=== PATIENT | female | born 1960 | race Caucasian/White ===

== ENCOUNTER 2021-06-28 12:22 | Emergency (ER) | payer OTHER ==
--- OUTSIDE RECORDS SUMMARY | 2021-06-28 12:25 | XMS REPORT | Continuity of Care Document ---
:1960 Author Organization [facility] t Address [address] [place] [address] Care Team Providers Name Role Phone Unknown Primary Care Physician Unavailable Peyton Skaggs Attending Clinician Unavailable Ame Attending Clinician Unavailable BRYNN Attending Clinician Unavailable Payers Payer Name Policy Type Policy Number Effective Date Expiration Date S parul MEDICARE PART A [id number] 2006 AND B 00:00:00 Problems Condition Condition Condition Status Onset Resolution Last Treating Co mments Source Name Details Category Date Date Treatment Clinician Date Dental Dental Disease Active [place] caries caries 07-30 Health 00:00: 00 Allergies, Adverse Reactions, Alerts Allergy Allergy Status Severity Reaction(s) Onset Inactive Treating Comm ents Source Name Type Date Date Clinician Penicill Allergy Active [place] ins to 07-30 Health substanc 00:00: e 00 Sulfamet Allergy Active Unknown 2020-0 [facility] hoxazole to 09-10 Health -Trimeth substanc 00:00: oprim e 00 Tramadol Allergy Active Unknown 2020-0 [place] to 09-10 Health substanc 00:00: e 00 Zolpidem Allergy Active Unknown 2020-0 [facility] to 09-10 Health substanc 00:00: e 00 PCN Adverse Active rash [facility] Stadol Adverse Active tachycardia [facility] Ambien Adverse Active hallucinatio [facility] Amitiza Adverse Active vomiting [facility] Lunesta Adverse Active hallucinatio [facility] Bactrim Adverse Active vomiting [facility] Reaction [facility] ent [facility] Levaquin Adverse Active Tendon [facility] Reaction snapped at [facility] - right knee [facility] ent Clinics Tramadol Adverse Active Info Not [facility] Reaction Available [facility] ent [facility] Social History Social Habit Start Date Stop Date Quantity Comments Source Exposure to Not sure [facility] SARS-CoV-2 (event) Alcohol intake 2020-07-08 2020-07-08 Ex-drinker [facility] 00:00:00 00:00:00 (finding) Tobacco Comment 2020-07-08 2020-07-08 Denies [facility] 00:00:00 00:00:00 Sex Ass[birth year] [facility] 00:00:00 00:00:00 Smoking Status Start Date Stop Date Source Tobacco smoking consumption unknown [facility] Medications Ordered Filled Start Stop Current Ordering Indication Dosage Frequency Signature Comments Components Source Medication Medication Date Date Medication? Clinician (SIG) Name Name No known No No known [place] medications 07-30 medication He alth 14:56: s 48 No known No No known [place] medications 07-30 medication He alth 14:56: s 48 chlorhexidi 2020- No [id number] 15mL Use 15 mL [place] ne 07-30 in the [facility] (Peridex) 00:00: 04:59 mouth or 0.12 % 00 :00 throat if solution needed for wound care for up to 14 days. clindamycin 2020- No [id number] 300mg Q.25D Take 1 [facility] (Cleocin) 07-30 capsule Health 300 MG 00:00: 04:59 (300 mg capsule 00 :00 total) by mouth 4 (four) times a day for 10 days. ibuprofen 2020- No [id number] 600mg Q6H Take 1 [place] 600 MG 07-30 tablet Health tablet 00:00: 04:59 (600 mg 00 :00 total) by mouth every 6 (six) hours if needed for mild pain for up to 4 days. Gabapentin Gabapentin Yes Kin Saleh [address] [facility] 7[facility]14 Li for pain [facility] Aciphex Aciphex 2018- Yes Kin Saleh [address] [facility]14 Li [facility] Crutch-Mate Crutch-Mate 2018-0 Yes Pete Saleh as [facility] Adult Adult 4-13 Li directed [facility] Fore[facility] Forearm [facility]: [facility] Protonix Protonix Yes Kin Saleh [address] [facility] Meloxicam Meloxicam Yes Kin Saleh [address] [facility] Seroquel Seroquel Yes Kin Saleh [address] [facility] Lasix Lasix Yes Kin Saleh 1-[address] [facility] [address] Li tablets as [facility] - needed for [facility] leg l swelling Outpati ent Clinics Simvastatin Simvastatin Yes Kin Saleh [address] [facility] Li in the [facility] evening [facility] Ropinirole Ropinirole Yes Kin Saleh [address] [facility] HCl HCl Li (take with [facility] - ropinirole [facility] 5 mg) l [facility]pat[facility] ent Clinics Amitriptyli Amitriptyli Yes Kin Saleh [address] [facility] Cyclobenzap Cyclobenzap Yes Kin Saleh [address] [facility] [address] rine HCl rine HCl Li as needed Yashira kes - for muscle [facility] cramps/henri l n Outpati ent Clinics Flovent Flovent Yes Kin Saleh 1 puff [facility] Diskus Diskus Li [facility] Ropinirole Ropinirole Yes Kin Saleh [address] [facility] [address] HCl HCl Li (take with [facility] - ropinirole [facility] 3 mg) l Outpati ent Clinics Fish Oil Fish Oil Yes Kin Saleh [address] [facility] [facility] Dulera Dulera Yes Kin Saleh [address] [facility] Incruse Incruse Yes Kin Saleh [facility] puff [facility] Ellipta Ellipta [facility] Metoprolol Metoprolol Yes Kin Saleh [address] [facility] [address] Tartrate Tartrate Li with food Yashira kes - [facility] Colace Colace Yes Kin Saleh not [facility] Adult Li defined [facility] Cymbalta Cymbalta Yes Kin Saleh [address] Valtrex Valtrex Yes Kin Saleh [address] [facility] Li orally 2x [facility] - daily x3 [facility] days l [facility]pat[facility] ent [facility]ics Aspirin Aspirin Yes Kin Saleh [address] [facility] MiraLax MiraLax Yes Kin Saleh [address] [facility] Li mixed with [facility] - 8 ounces [facility] of fluid l Outpati ent Clinics Furosemide Furosemide Yes Kin Saleh [address] [facility] Li as needed [facility] - for leg [facility] swelling l [facility] ent [facility]ics Mobic Mobic Yes Kin Saleh 1/[address] [facility] Li tablet as [facility] - needed for [facility] pain l [facility]pat[facility] ent Clinics Astepro Astepro Yes Kin Saleh 1 spray [address] [facility] each [facility] nostril [facility] Pantoprazol Pantoprazol Yes Kin Saleh [address] [facility] e Sodium e Sodium Li [facility] Clindamycin Clindamycin Yes Kin Saleh [address] [facility] HCl HCl Li [facility] Ciclopirox Ciclopirox Yes Kin Saleh [address] [facility] applicatio [facility] n to [facility] affected l area Outpati ent Clinics Vitamin D Vitamin D Yes Kin Saleh [address] [facility] Zomig Zomig Yes Kin Saleh [address] [facility] Li as needed [facility] - one time [facility] BusPIRone BusPIRone Yes Kin Saleh [address] [facility] HCl HCl Li [facility] Zetia Zetia Yes Kin Saleh [address] [facility] Zofran ODT Zofran ODT Yes Kin Saleh not C [facility] Li defined [facility] Bimatoprost Bimatoprost Yes Kin Saleh [address] [facility] Li into [facility] - affected [facility] eye in the l evening Outpati ent Clinics Oxybutynin Oxybutynin Yes Kin Saleh [address] [facility] [facility] Chloride ER Chloride ER Li [facility] Potassium Potassium Yes Kin Saleh [address] Chloride ER Chloride ER Li with food [facility] Immunizations Ordered Filled Immunization Date Status Comments Sourc e Immunization Name Name Flucelvax - single Flucelvax - single 2018-11-[address] [facility] dose syringe dose syringe 00:00:00 [facility] Vital Signs Vital Name Observation Time Observation Value Comments Source Systolic blood pressure 2020-07-29 20:00:00 139 mm[Hg] [facility] Diastolic blood pressure 2020-07-29 20:00:00 80 mm[Hg] [facility] Heart rate 2020-07-29 20:00:00 68 [facility]min [facility] height 2020-07-29 20:00:00 157.5 cm [facility] weight 2020-07-29 20:00:00 84.369 [facility] BMI 2020-07-29 20:00:00 34.02 kg/m2 [facility] Systolic blood pressure 2020-07-08 20:00:00 141 mm[Hg] [facility] Diastolic blood pressure 2020-07-08 20:00:00 84 mm[Hg] [facility] Heart rate 2020-07-08 20:00:00 71 /min [facility] height 2020-07-08 20:00:00 137.2 cm [facility] weight 2020-07-08 20:00:00 84.369 [facility] BMI 2020-07-08 20:00:00 44.85 kg/m2 [facility] Procedures This patient has no known procedures. Encounters Start End Encounter Admission Attending Care Care Encounter Source Date/Time Date/Time Type Type Clinicians Facility Department ID 2021-06-26 Outpatient Skaggs, Na [facility] [id number] [facility] 2021[facility]04-06 Outpatient Giles, Na [facility] [id number] [facility] 14[facility]47[facility]01 [facility] 2021-04-03 Outpatient Skaggs, Na [facility] [id number] [facility] 11:05[facility]00 [facility] 2021-03-25 Outpatient Giles, Na [facility] [id number] [facility] [address] 14[facility]22:27 [id number] [facility] 2021-03-25 Outpatient Skaggs, Na [facility] [id number] [facility] [address] 14:10:01 [id number] [facility] 2021-03-25 Outpatient Skaggs, Na [facility] [id number] [facility] [address] 14:09:35 [id number] [facility] 2021-03-25 Outpatient Skaggs, Na [facility] [id number] 13:35:37 [id number] [facility] 2021-03-25 Outpatient Skaggs, Na [facility] [id number] [facility] 12:28:09 [id number] [facility] 2021-03-25 Outpatient Skaggs, Na [facility]C [facility] [id number] [facility] 12:03:15 [id number] [facility] 2021-03-25 Outpatient Skaggs, Na [facility] ST[facility] [id number] [facility] [address] 12:02:58 [id number] [facility] 2021-03-25 Outpatient Skaggs, Na [facility] [id number] [facility] 12:02:27 [id number] [facility] 2021-03-25 Outpatient Skaggs, Na [facility] [id number] [facility] 12:00:37 [id number] [facility] 2021-03-25 Outpatient Ame, STLMLC [facility] [id number] 11:31:23 Vicky [id number] [facility] 2021-03-25 Outpatient Ame, [facility]LMLC [facility] [id number] [facility] 11:17:31 Vicky [id number] [facility] 2021-03-25 Outpatient Sidender, STLMLC STL[facility] [id number] 11:17:10 Vicky [id number] [facility] 2021-03-25 Outpatient Ame, STLMLC [facility] [id number] 11:00:33 Vicky [id number] [facility] 2021-03-25 Outpatient Ame, [facility] [id number] [facility] 10:57:38 Vicky [id number] [facility] 2020-07-16 Outpatient BRYNN [facility] [id number] [place] 15:23:18 TAIWO [facility] 2021-06-26 2021-06-26 ambulatory [facility] [id number] [facility] 2021-04-07 2021-04-07 ambulatory [facility] [id number] [facility] 2021-02-04 2021-02-04 ambulatory [facility] [id number] [facility] 2021-01-06 2021-01-06 ambulatory [facility] [id number] [facility] 2020-11-26 2020-11-26 Outpatient [facility] [id number] [facility] 2020-10-17 2020-10-17 Outpatient [facility] [id number] [facility] 2020-10-17 2020-10-17 Outpatient [facility] [id number] [facility] 2020-10-03 2020-10-03 Outpatient [facility] [id number] [facility] 2020-07-29 2020-07-29 Procedure LISA Zuniga [id number] [place] 13:48:52 15:59:26 Visit Taiwo RUIZ [id number] [facility] [id number] 2020-07-08 2020-07-08 Office LISA Zuniga [id number] [place] 15:45:58 17:48:57 Visit Taiwo RUIZ [id number] [facility] [id number] 2020-07-03 2020-07-03 Outpatient [facility] [id number] [facility] 2020-05-26 2020-05-26 Outpatient [facility] [id number] [facility] 2020-04-23 2020-04-23 Outpatient [facility] [id number] [facility] 2020-04-23 2020-04-23 Outpatient [facility] [id number] [facility] 2020-04-22 2020-04-22 Outpatient [facility] [id number] [facility] 2020-04-04 2020-04-04 Outpatient [facility] [id number] [facility] 2020-04-04 2020-04-04 Outpatient [facility] [id number] [facility] 2020-02-27 2020-02-27 Outpatient [facility] [id number] [facility] 2020-01-04 2020-01-04 Outpatient [facility] [id number] [facility] 2019-12-31 2019-12-31 Outpatient [facility] [id number] [facility] 2019-12-12 2019-12-12 Outpatient [facility] [id number] [facility] 2019-10-31 2019-10-31 [facility] [id number] [facility] 14[facility]00:00 14:00:00 [facility] Medicine Outpati ent Clinics 2019-09-24 2019-09-24 [facility] [id number] [address] 11:54:00 11:54:00 [facility] Medicine Outpati ent Clinics 2019-09-17 2019-09-17 [facility] [id number] 09:23:00 09:23:00 [facility] Medicine Outpati ent Clinics 2019-09-11 2019-09-11 [facility] [id number] [facility] 14[facility]40:00 14:40:00 [facility] Medicine Outpat[facility] Clinics 2019-08-20 2019-08-20 [facility] [id number] [facility] 09:46:00 09:46:00 [facility] Outpat[facility] Clinics 2019-08-07 2019-08-07 [facility] [id number] 13:47:00 13:47:00 [facility] Medicine Outpati ent Clinics 2019-07-31 2019-07-31 [facility] [id number] 16:44:00 16:44:00 [facility] Medicine Outpati ent Clinics 2019-06-11 2019-06-11 [facility] [id number] 14:54:00 14:54:00 [facility] Medicine Outpati ent Clinics 2019-06-11 2019-06-11 [facility] [id number] 10:15:00 10:15:00 t [facility] Medicine Medicine Outpati ent Clinics 2019-06-04 2019-06-04 [facility] [id number] [facility] 11:15:00 11:15:00 [facility] Medicine Outpati [facility] Clinics 2019-05-15 2019-05-15 [facility] [id number] [address] 11:47:00 11:47:00 t [facility] Medicine l Medicine Outpati ent Clinics 2019-05-14 2019-05-14 [facility] [id number] [facility] 15[facility]31:00 15:31:00 [facility] Medicine Outpati ent Clinics 2019-03-13 2019-03-13 [facility] [id number] [facility] 13:15:00 13:15:00 [facility] Medicine Outpati ent Clinics 2019-01-15 2019-01-15 [facility] [id number] 14[facility]59:00 14:59:00 [facility] Medicine Outpati [facility] Clinics 2019-01-11 2019-01-11 [facility] [id number] [facility] 16:20:00 16:20:00 [facility] Medicine Outpati ent Clinics 2018-12-13 2018-12-13 [facility] [id number] [facility] 12:03:00 12:03:00 t [facility] Medicine Medicine Outpati ent Clinics 2018-12-07 2018-12-07 [facility] [id number] [facility] 14:31:00 14:31:00 [facility] Medicine Outpati ent Clinics 2018-11-30 2018-11-30 [facility] [id number] [facility] 14:00:00 14:00:00 [facility] Medicine Outpati ent Clinics 2018-11-13 2018-11-13 [facility] [id number] [facility] 17:24:00 17:24:00 [facility] Outpat[facility] Clinics 2018-11-13 2018-11-13 [facility] [id number] [facility] 14:41:00 14:41:00 [facility] Outpati [facility] Clinics 2018-10-20 2018-10-20 [facility] [id number] [facility] 16:00:00 16:00:00 t [facility] Medicine Medicine Outpati ent Clinics 2018-09-12 2018-09-12 [facility] [id number] [address] 15:15:00 15[facility]15:00 [facility] Medicine Outpati ent Clinics 2018-08-29 2018-08-29 [facility] [id number] 10:40:00 10:40:00 t [facility] Medicine Medicine Outpati ent Clinics 2018-08-09 2018-08-09 [facility] [id number] [facility] 16:05:00 16:05:00 t [facility] Medicine Medicine Outpati ent Clinics 2018-04-22 2018-04-22 [facility] [id number] [facility] 13:25:00 13:25:00 t [facility] Medicine Medicine Outpati ent Clinics 2018-04-20 2018-04-20 [facility] [id number] [facility] 14:30:00 14:30:00 t [facility] Medicine Medicine Outpati ent Clinics 2018-04-13 2018-04-13 [facility] [id number] 11:01:00 11:01:00 [facility] Medicine Outpati ent Clinics 2018-03-26 2018-03-26 [facility] [id number] 19:36:00 19:36:00 t [facility] Medicine Medicine Outpati ent Clinics 2018-03-22 2018-03-22 [facility] [id number] [facility] 15:30:00 15:30:[address] [facility] [address] [facility] Medicine l Medicine Outpati ent Clinics 2018-03-20 2018-03-20 [facility] [id number] [facility] 14:03:00 14:03:[address] [facility] Medicine l Medicine Outpati ent Clinics 2018-03-17 2018-03-17 [facility] [id number] [facility] 16:56:00 16:56:[address] [facility] Medicine l Medicine Outpati ent Clinics 2017-11-18 2017-11-18 [facility] [id number] [facility] 14:00:00 14:00:00 t [facility] Medicine l Medicine Outpati ent Clinics 2017-08-19 2017-08-19 [facility] [id number] [facility] 11:30:00 11:30:[address] [facility] Medicine Medicine Outpati ent Clinics 2017-08-16 2017-08-16 [facility] [id number] [facility] 15:59:00 15:59:00 t [facility] Medicine Medicine Outpati ent Clinics 2017-07-26 2017-07-26 [facility] [id number] [facility] 14:34:00 14:34:[address] [facility] [address] [facility] Medicine l Medicine Outpati ent Clinics 2017-07-22 2017-07-22 [facility] [id number] [facility] 14:20:00 14:20:[address] [facility] [address] [facility] Medicine Medicine Outpati ent Clinics 2017-07-18 2017-07-18 [facility] [id number] [facility] 15:17:00 15:17:00 t [facility] Medicine l Medicine Outpati ent Clinics 2017-07-18 2017-07-18 [facility] [id number] [facility] 14:49:00 14:49:00 [facility] Medicine Outpati ent Clinics 2017-07-18 2017-07-18 [facility] [id number] [address] 14:34:00 14:34:[address] [facility] l Medicine Outpati ent Clinics 2017-07-15 2017-07-15 [facility] [id number] [facility] [address] 11:51:00 11:51:00 [facility] Medicine Outpati ent Clinics 2017-07-15 2017-07-15 [facility] [id number] 10:56:00 10:56:[address] [facility] l Medicine Outpati ent Clinics 2017-06-28 2017-06-28 [facility] [id number] [facility] 11:46:00 11:46:00 [facility] Medicine Outpati ent Clinics 2017-06-21 2017-06-21 [facility] [id number] [facility] 15:30:00 15:30:[address] [facility] l Medicine Outpati ent Clinics 2017-06-20 2017-06-20 [facility] [id number] [facility] 14:00:00 14:00:00 [facility] Medicine Outpati ent Clinics 2017-06-10 2017-06-10 [facility] [id number] [address] 13:37:00 13:37:00 [facility] Medicine Outpati ent Clinics 2017-06-02 2017-06-02 [facility] [id number] 15:00:00 15:00:00 [facility] Medicine Outpati ent Clinics 2017-06-01 2017-06-01 [facility] [id number] [facility] 11:30:00 11:30:00 [facility] Medicine Outpati ent Clinics Results This patient has no known results.
--- NOTE | 2021-06-28 14:41 | RAD REPORT ---
EXAM DESCRIPTION: RAD - Abdomen 1 View (KUB) - 06/28/2021 2:33 pm CLINICAL HISTORY: CONSTIPATION Pain COMPARISON: No comparisons FINDINGS: The bowel gas pattern is non-obstructive. No evidence of free air or pneumatosis. No suspi cious calcifications. No significant bony findings. Cholecystectomy clips. Significant fecal retention throughout the colon. IMPRESSION: Significant constipation.
[2021-06-28] MEDS ORDERED: MAGNESIUM CITRATE 300 ML BOT ONE (14:54)
[2021-06-28] MEDS ORDERED: FLEET ENEMA ADULT PR ONE (16:42)
--- NOTE | 2021-06-28 17:57 | EDPHYS ---
Physician Documentation [facility] Name: Genesis Duenas Age: 61 yrs Sex: Female : 1960 Arrival Date: 06/28/2021 Time: 12:23 Bed 26 Private MD: Alice Skaggs ED Physician Lior Huff HPI: 06/28 12:40 This 61 yrs old Female presents to ER via Wheelchair with complaints of Constipation. jmm 12:40 Onset: The symptoms/episode began/occurred 1 day(s) ago. Modifying factors: The jmm symptoms are alleviated by nothing. This is a 61 year old female with a history of htn, hlp, cp, that presents to the ED with complaints constipation beginning approx 2 weeks ago. Patient has only had a few small hard bowel movements since. Mother administered miralax with no relief. . Historical: - Allergies: 12:40 PENICILLINS (Rash); aa5 12:40 ambien (hallucinations); aa5 12:40 Lunesta (hallucinations); aa5 12:40 Stadol (fast heart rate); aa5 12:40 Levaquin ("snapped tendons"); aa5 12:40 Bactrim (Upset stomach); aa5 12:40 tramadol; aa5 12:40 Amitiza (severe diarrhea ); aa5 - PMHx: 12:40 Hypertensive disorder; Hypercholesterolemia; RLS; Sleep apnea; Anxiety; Depressive aa5 disorder; 12:46 Cerebral palsy; aa5 - PSHx: 12:40 Tonsillectomy; Adenoid excision; Tendons released behind knees; tendons released at aa5 groin; hip bone cut in half and turned outward; Cholecystectomy; section; hysterectomy; hernias; Appendectomy; - Immunization history:: Flu vaccine is up to date. - Social history:: Smoking status: Patient denies any tobacco usage or history of. ROS: 12:40 Constitutional: Negative for fever, chills, and weight loss, Cardiovascular: Negative jmm for chest pain, palpitations, and edema, Respiratory: Negative for shortness of breath, cough, wheezing, and pleuritic chest pain. 12:40 Abdomen/GI: Positive for abdominal pain, constipation. 12:40 All other systems are negative. Exam: 12:40 Constitutional: This is a well developed, well nourished patient who is awake, alert, jmm and in no acute distress. Head/Face: atraumatic. Eyes: EOMI, no conjunctival erythema appreciated ENT: Moist Mucus Membranes Neck: Trachea midline, Supple Chest/axilla: Normal chest wall appearance and motion. Cardiovascular: Regular rate and rhythm. No edema appreciated Respiratory: Normal respirations, no respiratory distress appreciated Abdomen/GI: Non distended, soft Back: Normal ROM Skin: General appearance color normal MS/ Extremity: Moves all extremities, no obvious deformities appreciated, no edema noted to the lower extremities Neuro: Awake and alert Psych: Behavior is normal, Mood is normal, Patient is cooperative and pleasant Vital Signs: 12:36 BP 132 / 80; Pulse 63; Resp 16 S; Temp 98.1(O); Pulse Ox 98% on R/A; Weight 84.82 kg aa5 (R); Height 4 ft. 6 in. (137.16 cm) (R); 12:36 Body Mass Index 45.09 (84.82 kg, 137.16 cm) aa5 MDM: 12:40 Patient medically screened. [facility] 17:54 Data reviewed: vital signs, nurses notes. Counseling: I had a detailed discussion with [facility] the patient and/or guardian regarding: the historical points, exam findings, and any diagnostic results supporting the discharge/admit diagnosis, radiology results, the need for outpatient follow up, to return to the emergency department if symptoms worsen or persist or if there are any questions or concerns that arise at home. ED course: Patient able to have a BM in the ED. Will follow up with GI for further evaluation. . 06/28 12:40 Order name: Abdomen 1 View (KUB) XRAY; Complete Time: 14:46 [facility] 06/28 15:27 Order name: [facility]. Order: bedside toilet; Complete Time: 15:28 [facility] 06/28 16:23 Order name: [facility]. Order: check for BM; Complete Time: 16:26 [facility] Administered Medications: 15:00 Drug: Magnesium Citrate Liquid 300 ml Route: PO; iw 16:49 Drug: Fleet Enema (sodium phosphate) 133 ml Route: [place]; iw Disposition: 18:11 Co-signature as Attending Physician, Lior Huff MD I agree with the assessment and kdr plan of care. Disposition Summary: 06/28/21 17:56 Discharge Ordered Location: Home jmm Condition: Stable jmm Diagnosis - Constipation jmm Followup: jmm - With: Private Physician - When: 1 - 2 days - Reason: Recheck today's complaints, Continuance of care, Re-evaluation by your physician Discharge Instructions: - Discharge Summary Sheet jmm - Constipation, Adult jmm Forms: - Medication Reconciliation Form jmm - Thank You Letter jmm - Antibiotic Education jmm - Prescription Opioid Use jmm Signatures: Dispatcher [employer] Lior Cardenas MD MD kdr Mickail, Joel, PA PA jmm Williams, Irene, RN RN Jessica Campbell RN RN aa5
--- NOTE | 2021-06-28 17:57 | ER ---
Nurse's Notes [facility] Name: Genesis Duenas Age: 61 yrs Sex: Female : 1960 Arrival Date: 06/28/2021 Time: 12:23 Bed 26 Private MD: Alice Skaggs Diagnosis: Constipation Presentation: 06/28 12:36 Chief complaint: Patient states: constipation x 6 days ago. Denies nausea/vomiting. aa5 Coronavirus screen: At this time, the client does not indicate any symptoms associated with coronavirus-19. Ebola Screen: No symptoms or risks identified at this time. Initial Sepsis Screen: Does the patient meet any 2 criteria? No. Patient's initial sepsis screen is negative. Does the patient have a suspected source of infection? No. Patient's initial sepsis screen is negative. Risk Assessment: Do you want to hurt yourself or someone else? Patient reports no desire to harm self or others. Onset of symptoms was May 2021. 12:36 Method Of Arrival: Wheelchair aa5 12:36 Acuity: YULI 3 aa5 Historical: - Allergies: 12:40 PENICILLINS (Rash); aa5 12:40 ambien (hallucinations); aa5 12:40 Lunesta (hallucinations); aa5 12:40 Stadol (fast heart rate); aa5 12:40 Levaquin ("snapped tendons"); aa5 12:40 Bactrim (Upset stomach); aa5 12:40 tramadol; aa5 12:40 Amitiza (severe diarrhea ); aa5 - PMHx: 12:40 Hypertensive disorder; Hypercholesterolemia; RLS; Sleep apnea; Anxiety; Depressive aa5 disorder; 12:46 Cerebral palsy; aa5 - PSHx: 12:40 Tonsillectomy; Adenoid excision; Tendons released behind knees; tendons released at aa5 groin; hip bone cut in half and turned outward; Cholecystectomy; section; hysterectomy; hernias; Appendectomy; - Immunization history:: Flu vaccine is up to date. - Social history:: Smoking status: Patient denies any tobacco usage or history of. Screenin:34 Abuse screen: Denies threats or abuse. Denies injuries from another. Nutritional iw screening: No deficits noted. Tuberculosis screening: No symptoms or risk factors identified. Assessment: 15:23 Reassessment: Patient appears in no apparent distress at this time. pt finished Mag iw Citrate., now on bedside commode, states she is having some cramping. 16:33 Reassessment: Patient appears in no apparent distress at this time. pt still has not iw had a BM . CHANNING Reyes notified. Vital Signs: 12:36 BP 132 / 80; Pulse 63; Resp 16 S; Temp 98.1(O); Pulse Ox 98% on R/A; Weight 84.82 kg aa5 (R); Height 4 ft. 6 in. (137.16 cm) (R); 12:36 Body Mass Index 45.09 (84.82 kg, 137.16 cm) aa5 ED Course: 12:23 Patient arrived in ED. as 12:26 Alice Skaggs MD is Private Physician. as 12:34 [facility] Moss [facility] 12:34 Lior Huff MD is Attending Physician. m 12:36 Arm band placed on. aa5 12:37 Triage completed. aa5 14:35 Abdomen 1 View (KUB) XRAY In Process Unspecified. EDMS 14:47 La Roach, RN is Primary Nurse. iw Administered Medications: 15:00 Drug: Magnesium Citrate Liquid 300 ml Route: PO; iw 16:49 Drug: Fleet Enema (sodium phosphate) 133 ml Route: HI; iw Outcome: 17:56 Discharge ordered by . [facility] 18:09 Patient left the ED. iw Signatures: Dispatcher [employer] EDMS Eric Moss PA PA [facility] Ninoska [place] as La Roach, RN RN iw Jessica Mata RN RN aa5 Corrections: (The following items were deleted from the chart) 12:40 12:36 Chief complaint: Patient states: constipation x 6 days ago. Denies aa5 nausea/vomiting. aa5 12:46 12:36 BP 132 / 80; Pulse 63bpm; Resp 16bpm; Spontaneous; Pulse Ox 98% RA; Temp 98.1F aa5 Oral; aa5
[2021-06-28 18:53] VITALS: BP 132/80; TEMP 98.1; O2SAT 98
== END 2021-06-28 18:09 | disposition home or self-care (01) ==
LOC: ER 12:22
DX: K59.00 Constipation, unspecified (principal); I10 Essential (primary) hypertension; Z88.0 Allergy status to penicillin; Z88.1 Allergy status to other antibiotic agents; Z88.5 Allergy status to narcotic agent; Z88.8 Allergy status to other drugs, medicaments and biological substances
CPT/HCPCS: 74018; 99283

== ENCOUNTER 2024-05-04 19:01 | Inpatient (IN) | payer OTHER ==
[2024-05-04] MEDS ORDERED: ONDANSETRON 4 MG/2 ML VIAL ONE (19:44)
[2024-05-04] MEDS ORDERED: MORPHINE 4 MG/ML SYR ONE (19:44)
--- NOTE | 2024-05-04 20:17 | RAD REPORT ---
EXAMINATION: CT ABDOMEN AND PELVIS WITHOUT CONTRAST CLINICAL INDICATION: Female, 64 years old.ABDOMINAL DISTENTION TECHNIQUE: CT abdomen and pelvis was performed, without IV contrast, as per department protocol. Axia l, sagittal and coronal reconstructions were obtained. One or more of the following dose reduction techniques were used: Automated exposure control, adjustment of the mA and/or kV according to the pat ient size, and/or iterative reconstruction. Unless otherwise specified, incidental findings do not require dedicated imaging follow-up. [id number]. IV CONTRAST: Not administered. COMPARISON: 06/23/2007 FINDINGS: The lack of intravenous contrast limits the sensitivity of this exam for evaluation of solid visceral organs, vascular structures, and retroperitoneum. LOWER CHEST: No acute process identified.No significant pericardial effusion. Small hiatal hernia wit h circumferential thickening of the esophagus which could reflect esophagitis. UPPER GI: No significant abnormality. LIVER: Hepatic steatosis, but otherwise unremarkable. GALLBLADDER/BILE DUCTS: Cholecystectomy. Moderate extrahepatic biliary ductal dilatation. This could be secondary to the post-cholecystectomy state. Recommend correlation with LFT's. If abnormal, consider MRCP for further evaluation. ? PANCREAS: Atrophy but no acute findings. SPLEEN: Unremarkable. ADRENALS: No adrenal masses. KIDNEYS AND URETERS: No hydronephrosis.No suspicious renal mass.No renal calculi. ABDOMINAL AORTA AND OTHER VESSELS: Mild atherosclerotic changes. PERITONEUM: No abnormal free fluid. No free air. LYMPH NODES: No pathologic lymphadenopathy. ABDOMINAL WALL: Right inguinal hernia repair. SMALL BOWEL/COLON: Small bowel has normal course and caliber. No colonic wall thickening or pericolon ic inflammatory changes.Appendix absent. Mild diverticulosis without diverticulitis. Moderate formed stool burden. URINARY BLADDER: Underdistended but grossly unremarkable. REPRODUCTIVE ORGANS: Uterus surgically absent. No adnexal abnormality. MUSCULOSKELETAL: Right-sided intertrochanteric hip fracture. Grade 1 anterolisthesis of L5 on S1. Inf erior endplate deformity at T12 and superior endplate deformity at T9 favored chronic. ADDITIONAL FINDINGS: None. IMPRESSION: No acute findings within the abdomen or pelvis. Right intertrochanteric hip fracture. Incidental findings as noted above.
--- NOTE | 2024-05-04 20:20 | RAD REPORT ---
EXAMINATION: Lower Ext Wo Con W/ Mpr CLINICAL INDICATION: Female, 64 years old.pain RIGHT TECHNIQUE: CT above extremity was performed without contrast. Reformats were performed. One or more o f the following dose reduction techniques were used: Automated exposure control, adjustment of the mA and/or kV according to patient size, and/or iterative reconstruction. Unless otherwise specified, incidental findings do not require dedicated imaging follow-up. [id number]. COMPARISON: No prior exam. FINDINGS: Displaced right-sided intertrochanteric hip fracture which is mildly comminuted. There is mild superi or and lateral displacement. No dislocation. No other pelvic fractures are identified. No other fractures identified in the right lower extremity. Tricompartmental joint changes are present the kne e. IMPRESSION: Mildly displaced and comminuted intertrochanteric right hip fracture.
--- NOTE | 2024-05-04 20:47 | ER ---
Nurse's Notes [facility] Name: Genesis Duenas Age: 64 yrs Sex: Female : 1960 Arrival Date: 05/04/2024 Time: 19:01 Bed 2 Private MD: Diagnosis: Intertrochanteric fracture right hip, mildly displaced and comminuted Presentation: 05/04 19:14 Chief complaint: EMS states: WAS ATTEMPTING TO GET OUT OF BED TO GET INTO HER ha1 WHEELCHAIR WITH HER MOTHERS HELP WHEN SHE FELL. PAIN ON THE RIGHT HIP AND RIGHT ANKLE. PREVIOUS INJURY TO SAME LEG 10 YEARS AGO. 19:14 Coronavirus screen: Client denies travel out of the [place] in the last 14 days. Ebola ha1 Screen: No symptoms or risks identified at this time. Initial Sepsis Screen: Does the patient meet any 2 criteria? No. Patient's initial sepsis screen is negative. Does the patient have a suspected source of infection? No. Patient's initial sepsis screen is negative. Risk Assessment: Do you want to hurt yourself or someone else? Patient reports no desire to harm self or others. Onset of symptoms was May 04, 2024. Care prior to arrival: Medication(s) given: zofran 4 mg, FENTANYL 50 mcg. 19:14 Method Of Arrival: EMS: [facility] ha1 19:14 Acuity: YULI 3 ha1 Triage Assessment: 19:20 General: Appears uncomfortable, Behavior is calm, cooperative. Pain: Complains of pain ha1 in right leg Pain currently is 5 out of 10 on a pain scale. Quality of pain is described as throbbing. Neuro: Level of Consciousness is awake, alert, obeys commands, Oriented to person, place, time, situation. Cardiovascular: Capillary refill < 3 seconds Patient's skin is warm and dry. Respiratory: Airway is patent Respiratory effort is even, unlabored, Respiratory pattern is regular, symmetrical. GI: No signs and/or symptoms were reported involving the gastrointestinal system. GI: Abdomen is round non-distended, obese. : No signs and/or symptoms were reported regarding the genitourinary system. Derm: Skin is pink, warm \T\ dry. Musculoskeletal: Circulation, motion, and sensation intact. Historical: - Allergies: 19:20 ambien (Hallucinations); ha1 19:20 Amitiza (severe diarrhea); ha1 19:20 Bactrim (Upset stomach); ha1 19:20 Lunesta (Hallucinations); ha1 19:20 Stadol (fast heart rate); ha1 19:20 PENICILLINS (rash); ha1 19:20 tramadol; ha1 19:20 Levaquin; ha1 - PMHx: 19:20 Anxiety; Cerebral Palsy; depressive disorder; Hypercholesterolemia; Hypertensive ha1 disorder; RLS; Sleep Apnea; - PSHx: 19:20 Adenoid excision; Appendectomy; section; Cholecystectomy; hernias; hip bone ha1 cut in half and turned outward; hysterectomy; tendons released at groin; Tendons released behind knees; Tonsillectomy; - Immunization history:: Adult Immunizations up to date. - Infectious Disease History:: Denies. - Social history:: Smoking status: Patient denies any tobacco usage or history of. Screenin:24 [facility] ED Fall Risk Assessment (Adult) History of falling in the last 3 months, ha1 including since admission Yes- single mechanical fall (1 pt) Confusion or Disorientation No (0 pts) Intoxicated or Sedated No (0 pts) Impaired Gait Yes (1 pt) Mobility Assist Device Used Yes (1 pt) Altered Elimination No (0 pt) Score/Fall Risk Level 3 or more points = High Risk Oriented to surroundings, Maintained a safe environment, Educated pt \T\ family on fall prevention, incl call for assistance when getting out of bed, Hourly rounding (assess needs \T\ fall precautionary measures) done. Abuse screen: Denies threats or abuse. Denies injuries from another. Nutritional screening: No deficits noted. Tuberculosis screening: No symptoms or risk factors identified. Assessment: 19:15 Reassessment: see triage assessment. ha1 20:05 Reassessment: Patient and/or family updated on plan of care and expected duration. Pain ha1 level reassessed. Patient is alert, oriented x 3, equal unlabored respirations, skin warm/dry/pink. pain 5/10 Patient states feeling better. Patient states symptoms have improved. Vital Signs: 19:14 BP 121 / 80; Pulse 71; Resp 17 S; Temp 97.9(O); Pulse Ox 95% on R/A; Weight 88.45 kg ha1 (M); Height 5 ft. 0 in. ; 20:05 BP 122 / 86; Pulse 67; Resp 17 S; Pulse Ox 95% on R/A; ha1 19:14 Body Mass Index 38.08 (88.45 kg, 152.4 cm) ha1 ED Course: 19:14 Patient arrived in ED. ha1 19:19 Triage completed. ha1 19:28 [facility] sb4 19:28 Ave Manriquez MD is Attending Physician. sb4 19:30 Maintain EMS IV. Dressing intact. Good blood return noted. Site clean \T\ dry. Gauge \T\ flores 1 site: 20 GAUGE LEFT AC. Flushed with 10 mL NS. 19:42 Cindy Borja RN is Primary Nurse. kd3 19:59 CT Abd/Pelvis - Without Contrast In Process Unspecified. EDMS 20:00 Lower Ext Wo Con W/ Mpr In Process Unspecified. EDMS 20:45 Felipe Boo MD is Hospitalizing Provider. sb4 Administered Medications: 19:47 Drug: morphine IVP or IV 4 mg IVP once over 4 mins Route: IVP; Infused Over: 4 mins; kd3 Site: right antecubital; 19:47 Drug: Ondansetron IVP 4 mg IVP once; over 2 minutes Route: IVP; Site: right antecubital;kd3 Outcome: 20:46 Decision to Hospitalize by Provider. sb4 0308 01:02 Patient left the ED. kd3 Signatures: Dispatcher [employer] Cindy Canela RN RN kd3 Kimberli Barnes RN RN 1 Sayda Ibarra PA-C PA-C sb4 Corrections: (The following items were deleted from the chart) 05/04 20:10 19:30 Maintain EMS IV. Dressing intact. Good blood return noted. Site clean \T\ dry. ha1 Gauge \T\ site: 20 GAUGE LEFT AC. ha1
--- NOTE | 2024-05-04 20:47 | EDPHYS ---
Physician Documentation [facility] Name: Genesis Duenas Age: 64 yrs Sex: Female : 1960 Arrival Date: 05/04/2024 Time: 19:01 Bed 2 Private MD: ED Physician Ave Manriquez HPI: 05/04 20:05 This 64 yrs old Female presents to ER via EMS with complaints of Fall Injury. sb4 20:05 Patient with history of cerebral palsy, cannot ambulate without assistance, presents to [facility] the ED with complaints of right leg pain secondary to a fall. Patient and caregiver state that they were working to transfer her into a wheelchair for dinner when her legs got tripped up and she fell awkwardly with her right leg bent. Patient is complaining of pain in her right hip/upper leg and states it radiates all the way down her lateral leg. No deformity noted. Neurovascularly intact. Historical: - Allergies: 19:20 ambien (Hallucinations); ha1 19:20 Amitiza (severe diarrhea); ha1 19:20 Bactrim (Upset stomach); ha1 19:20 Lunesta (Hallucinations); ha1 19:20 Stadol (fast heart rate); ha1 19:20 PENICILLINS (rash); ha1 19:20 tramadol; ha1 19:20 Levaquin; ha1 - PMHx: 19:20 Anxiety; Cerebral Palsy; depressive disorder; Hypercholesterolemia; Hypertensive ha1 disorder; RLS; Sleep Apnea; - PSHx: 19:20 Adenoid excision; Appendectomy; section; Cholecystectomy; hernias; hip bone ha1 cut in half and turned outward; hysterectomy; tendons released at groin; Tendons released behind knees; Tonsillectomy; - Immunization history:: Adult Immunizations up to date. - Infectious Disease History:: Denies. - Social history:: Smoking status: Patient denies any tobacco usage or history of. ROS: 20:05 Constitutional: Negative for fever, chills, and weight loss, sb4 20:05 Abdomen/GI: Positive for constipation, abdominal distension, 20:05 MS/extremity: Positive for injury or acute deformity, pain, of the right leg, 20:05 All other systems are negative, Exam: 20:05 Constitutional: This is a well developed, well nourished patient who is awake, alert, sb4 and in no acute distress. Head/Face: Normocephalic, atraumatic. Eyes: Extra-ocular motions intact. Periorbital areas with no swelling, redness, or edema. ENT: Mucous membranes moist. Respiratory: No increased work of breathing, no retractions or nasal flaring. Skin: Warm, dry with normal turgor. Normal color with no rashes, no lesions, and no evidence of cellulitis. Vital Signs: 19:14 BP 121 / 80; Pulse 71; Resp 17 S; Temp 97.9(O); Pulse Ox 95% on R/A; Weight 88.45 kg ha1 (M); Height 5 ft. 0 in. ; 20:05 BP 122 / 86; Pulse 67; Resp 17 S; Pulse Ox 95% on R/A; ha1 19:14 Body Mass Index 38.08 (88.45 kg, 152.4 cm) ha1 MDM: 19:28 Medical Screening Exam initiated sb4 20:44 Data reviewed: vital signs, nurses notes, EMS record, radiologic studies. sb4 05/04 23:49 Order name: Magnesium EDMS 05/04 23:49 Order name: Protime (+INR) EDMS 05/04 23:49 Order name: Urinalysis w/ reflexes EDMS / 23:49 Order name: CBC with Automated Diff EDMS / 23:50 Order name: CBC with Automated Diff EDMS / 23:50 Order name: Comprehensive Metabolic Panel EDMS 05/04 23:50 Order name: Comprehensive Metabolic Panel EDRI 05/04 19:37 Order name: CT Abd/Pelvis - Without Contrast; Complete Time: 20:20 sb4 05/04 19:41 Order name: Lower Ext Wo Con W/ Mpr; Complete Time: 20:20 EDMS / 23:49 Order name: CONS Physician Consult EDMS Administered Medications: 19:47 Drug: morphine IVP or IV 4 mg IVP once over 4 mins Route: IVP; Infused Over: 4 mins; kd3 Site: right antecubital; 19:47 Drug: Ondansetron IVP 4 mg IVP once; over 2 minutes Route: IVP; Site: right antecubital;kd3 Disposition Summary: 05/04/24 20:46 Hospitalization Ordered Notes: Hospitalization Status: Inpatient Admission sb4 Provider: Felipe Boo sb4 [facility] sb4 Condition: Fair sb4 Problem: new sb4 Symptoms: are unchanged sb4 Bed/Room Type: Standard sb4 Room Assignment: 205(05/05/24 00:55) vk Diagnosis - Intertrochanteric fracture right hip, mildly displaced and comminuted sb4 Forms: - Medication Reconciliation Form sb4 - SBAR form sb4 - Leadership Thank You Letter sb4 Signatures: Dispatcher [employer] Cindy Canela RN RN kd3 Kimberli Barnes RN RN ha1 Sayda Ibarra, PAGaryC PAGaryC sb4 Mercedes Zarate Corrections: (The following items were deleted from the chart) 23:55 20:46 sb4 vk 05/05 00:55 05/04 23:55 224 vk vk
[2024-05-04] MEDS ORDERED: ACETAMINOPHEN 500 MG TAB PO PRN (23:42)
--- NOTE | 2024-05-04 23:55 | P.HP ---
Patient History Date of Service: 05/05/24 History of Present Illness: This is a 64-year-old female with a past medical history of cerebral palsy, new onset diet-controlled diabetes, hypertension who presented after a fall earlier today. I spoke with her mother over the phone. She states she was transferring from her bed to her wheelchair. Her right leg buckled underneath her and she twisted on the way down she denies loss of consciousness or hitting her head. In addition she denies fever, dysuria, chills. She states as a child she has had numerous surgeries and she has had no reaction to anesthesia. She does take Tylenol 3 pills once a month for pain control. Allergies butorphanol tartrate [From Stadol] Allergy (Verified 09/12/11 21:29) HEART RACE eszopiclone [From Lunesta] Allergy (Verified 09/12/11 21:29) HALLUCINATIONS Penicillins Allergy (Verified 09/12/11 21:29) Hives/Rash zolpidem tartrate [From Ambien] Allergy (Verified 09/12/11 21:28) HALLUCINATIONS levofloxacin [From Levaquin] Adverse Reaction (Intermediate, Verified 08/02/12 11:17) Tendon problems Home Medications: Baclofen [Lioresal] 20 mg PO BID 08/02/12 Buspirone HCl 10 mg PO BID 08/02/12 Duloxetine [Cymbalta *] 60 mg PO BID 08/02/12 Esomeprazole Mag Trihydrate [Nexium] 40 mg PO DAILY 08/02/12 Ezetimibe/Simvastatin [Vytorin 10-40 mg Tablet] 1 each PO DAILY 08/02/12 Losartan Potassium [Cozaar] 100 mg PO DAILY 08/02/12 Meloxicam [Mobic*] 2 tab PO DAILY 08/02/12 Metoclopramide [Reglan*] 5 mg PO BIDP PRN 08/02/12 Metoprolol Tartrate [Lopressor*] 50 mg PO BID 08/02/12 Oxybutynin Chloride [Ditropan Xl] 15 mg PO DAILY 08/02/12 Quetiapine [Seroquel*] 300 mg PO BEDTIME 08/02/12 Ropinirole HCl [Requip*] 5 mg PO BID 08/02/12 Valacyclovir HCl [Valacyclovir] 500 mg PO DAILY 08/02/12 - Past Medical/Surgical History Diabetic: No -: CP -: HTN -: Anxiety -: Depression -: Cholcystectomy -: herniorrhaphy x4 -: appendectomy -: hysterectomy -: Tonsillectomy -: Multiple leg and hip sx - Social History Alcohol use: No CD- Drugs: No Caffeine use: Yes Review of Systems 10-point ROS is otherwise unremarkable Physical Examination - Physical Exam General: Alert, In no apparent distress, Obese HEENT: Atraumatic, Normocephalic Neck: Supple Respiratory: Clear to auscultation bilaterally, Normal air movement Cardiovascular: Normal pulses Capillary refill: <2 Seconds Gastrointestinal: Normal bowel sounds Musculoskeletal: No clubbing Integumentary: No rashes Neurological: Normal speech Lymphatics: No axilla or inguinal lymphadenopathy Assessment and Plan - Plan Right intertrochanteric hip fracture Diabetes mellitus Hypertension Obesity Cerebral palsy Restless leg syndrome Muscle cramps Orthopedic surgery consult, n.p.o. at midnight, fluid, pain control Diet controlled, low carbohydrate diet Continue BuSpar Continue Cymbalta Continue losartan and Lopressor Continue Nexium Continued ropinirole DVT prophylaxis with heparin - Advance Directives Does patient have a Living Will: No Does patient have a Durable POA for Healthcare: No
[2024-05-05] MEDS: HEPARIN 5000 UNIT/ML 1 ML VIAL SQ SCH (01:00)
[2024-05-05 02:51] VITALS: BMI 47.7
[2024-05-05] MEDS: HYDROMORPHONE HCL 1 MG/ML INJ IV ONE (03:20)
[2024-05-05] MEDS: NA CHLORIDE 0.9% 1,000 ML IV SCH (03:29)
[2024-05-05 06:03] LABS: Absolute Eosinophils 0.2 K/uL (0-0.5); Absolute Lymphocytes (CBC) 2.4 K/uL (0.7-4.9); Absolute Monocytes 0.5 K/uL (0.1-1.3); Absolute Neutrophil 3.5 K/uL (1.8-8.0); Basophils % 0.4 % (0-1.3); Eosinophils % 2.4 % (0-4.4); Lymphocytes % 36.6 % (15.3-44.8); MCH 31.1 pg (27.0-35.0); MCHC 34.3 g/dL (32.0-36.0); MCV 90.7 fL (80-100); MPV 8.5 fL (7.6-11.3); Monocytes % 7.4 % (3.3-12.3); Neutrophils % 53.2 % (41.7-73.7); Platelets 214 thou/uL (152-406); RBC Red Blood Cell Count 4.19 M/uL (3.86-4.86); Red Cell Distribution Width 13.1 % (12.1-15.2)
[2024-05-05 06:16] LABS: PT Prothrombin Time 11.4 SECONDS (10.0-13.0)
[2024-05-05 06:28] LABS: Albumin 3.1 g/dL (3.4-5.0); Albumin/Globulin Ratio 0.9 (1.1-1.8); Anion Gap 10.5 mEq/L (5.0-15.0); Bilirubin Total 0.3 mg/dL (0.2-1.0); Globulin 3.5 g/dL (2.3-3.5); Magnesium 2.2 mg/dL (1.6-2.4); Potassium 4.5 mEq/L (3.5-5.1); Protein, Total 6.6 g/dL (6.4-8.2)
[2024-05-05] MEDS: METOPROLOL TAR 50 MG TAB PO SCH (08:19)
[2024-05-05] MEDS: EZETIMIBE 10 MG TAB PO SCH (08:22)
[2024-05-05] MEDS: BUSPIRONE HCL 5 MG TABLET PO SCH (08:22)
[2024-05-05] MEDS ORDERED: BACLOFEN 20 MG PO SCH (09:00)
[2024-05-05] MEDS ORDERED: DULOXETINE 30 MG CAP PO SCH (09:00)
[2024-05-05] MEDS: HOME MED 1 EA UNK (Losartan Potassium [Cozaar] 25 MG Tablet) PO SCH (09:00)
[2024-05-05] MEDS: HYDROCODONE/APAP 7.5/325 MG TAB PO PRN (09:34)
--- NOTE | 2024-05-05 10:47 | CON ---
Date of Consultation: 05/05/2024 History Of Present Illness: This is my first time seeing this patient to my knowledge. She is a 64- year-old female who has had previous diagnosis of cerebral palsy. She was an ambulator until reporte d by her family. She had Levaquin, which caused multiple ligament injuries to her right knee. Since that time, she has basically been a transfer mobility user and has not been walking, but unfortunate ly, as she was getting up yesterday, felt her leg give way underneath her and fell onto her right low er extremity. She was seen and examined in the emergency department, where a CT scan was done, which demonstrates a displaced right basicervical/intertrochanteric fracture. Physical Examination: All of her long bones and joints are palpated without pain or crepitation with the exception of a sli ght amount of pain in her left shoulder as well as pain with any movement or manipulation of her righ t hip. She does have pain related to her right knee, but she says that this is unchanged since the f all. Her family was there and they did discuss that as a child she did have surgeries on both of her femur s for repositioning of her femur bones, but this was many, many years ago. Review of the CT scan demonstrates the basicervical fracture does not appear to have an extremely alt ered morphology of the right femur. On CT scan, she does have degenerative changes of the right knee , which are obvious as well as valgus alignment and some subluxation of the tibia on the femur. Assessment: A 64-year-old female with preexisting cerebral palsy, preexisting operative intervention regarding her femurs, now with a right basicervical fracture. Plan: At this time, I do not think she has a lot of anterior bowing or bowing of the shaft. The sha ft itself does have medullary canal. There may be some anterior bow, but it does appear that we shou ld be able to place an intramedullary device and we will at this time schedule for this most likely t omorrow. Risks, benefits, and alternatives have been discussed with the patient and family. They st ate they understand things as presented and all their questions have been answered. /JORDAN Voice ID: [id number] Report ID: [id number]
[2024-05-05] MEDS: PANTOPRAZOLE 40MG TABLET PO SCH (12:41)
--- NOTE | 2024-05-05 13:40 | P.PN ---
Subjective Date of Service: 05/05/24 Patient complaining of pain in his right leg and restless left leg No fever. Physical Examination - Vital Signs Temperature: 97.7 F Blood Pressure: 107/60 Pulse: 76 Respirations: 13 Pulse Ox (%): 95 Assessment And Plan - Plan Physical examination General: Alert and oriented x3, NAD, morbidly obese HEENT: Conjunctiva not pale, anicteric sclera Neck: Supple, no elevated JVD Heart: Heart sounds 1 and 2 normal, regular rhythm, normal rate, no pedal edema Lungs: Clear to auscultation bilaterally, adequate breath sounds bilaterally, no rhonchi or crackles. Abdomen: Soft, nondistended, nontender, normal bowel sounds. Extremities: No tenderness, no deformity Skin: Normal skin turgor, no rash, no nodules or ulcers. Neuro: No focal motor deficit. Normal speech. Psychiatry: Normal mood, no agitation. Right intertrochanteric hip fracture Diabetes mellitus Hypertension Morbid obesity Cerebral palsy Restless leg syndrome Muscle cramps Plan Right intertrochanteric fracture Fall Patient evaluated by orthopedic Dr. Ward and plan for ORIF tomorrow. Analgesics as needed. Check UA to rule out UTI. Diabetes mellitus type 2 Borderline diabetes. Diet controlled low carbohydrate diet Restless leg syndrome Cerebral palsy Continue home medications Essential hypertension Borderline low BP. Hold antihypertensives for now. DVT prophylaxis: heparin Advanced directive: Full code
[2024-05-05] MEDS: ALPRAZOLAM 0.25 MG TABLET PO PRN (21:51)
[2024-05-05] MEDS: ATORVASTATIN 10 MG TAB PO SCH (21:51)
[2024-05-05] MEDS: ROPINIROLE HCL 1 MG TAB PO SCH (21:53)
[2024-05-05 23:36] LABS: Specific Gravity 1.025 (1.005-1.030); Sqamous Epithelial <5 /HPF (None Seen); Urine Bacteria <20 /HPF (<20); Urine Bilirubin NEGATIVE (Negative); Urine Blood Trace (Negative); Urine Clarity Turbid (Clear); Urine Color Light-Yellow (Yellow); Urine Culture Reflex Order REFLEXED; Urine Glucose NEGATIVE (Negative); Urine Ketones NEGATIVE (Negative); Urine Microscopic Reflex YN ORDER UMIC; Urine Mucus Slight /HPF (None Seen); Urine Nitrite NEGATIVE (Negative); Urine Protein TRACE (Negative); Urine RBC 21-50 /HPF (None Seen); Urine Urobilinogen Normal (Normal); Urine pH 5.5 (5.0-7.0)
[2024-05-06 05:32] LABS: Absolute Eosinophils 0.2 K/uL (0-0.5); Absolute Lymphocytes (CBC) 2.3 K/uL (0.7-4.9); Absolute Monocytes 0.4 K/uL (0.1-1.3); Absolute Neutrophil 3.8 K/uL (1.8-8.0); Basophils % 0.5 % (0-1.3); Eosinophils % 2.6 % (0-4.4); Hemoglobin 12.6 g/dL (12.0-15.0); Lymphocytes % 33.8 % (15.3-44.8); MCHC 34.1 g/dL (32.0-36.0); MCV 90.7 fL (80-100); MPV 8.8 fL (7.6-11.3); Monocytes % 6.6 % (3.3-12.3); Neutrophils % 56.5 % (41.7-73.7); Platelets 195 thou/uL (152-406); RBC Red Blood Cell Count 4.08 M/uL (3.86-4.86)
[2024-05-06 05:41] LABS: Anion Gap 9.3 mEq/L (5.0-15.0); Potassium 4.3 mEq/L (3.5-5.1)
[2024-05-06] MEDS ORDERED: FENTANYL CITR 100 MCG/2 ML ONE (07:21)
[2024-05-06] MEDS ORDERED: MIDAZOLAM HCL 2 MG/2 ML INJ ONE (07:21)
[2024-05-06] MEDS ORDERED: ONDANSETRON 4 MG/2 ML VIAL ONE (07:21)
[2024-05-06] MEDS ORDERED: propofoL 200 MG/20 ML VIAL IV ONE (07:21)
[2024-05-06] MEDS ORDERED: LIDOCAINE 2% MPF 5 ML VIAL ONE (07:21)
[2024-05-06] MEDS ORDERED: Phenylephrine HCl 10 MG/ML 1 ML VIAL ONE (07:27)
[2024-05-06] MEDS: ROPINIROLE HCL 1 MG TAB PO SCH (08:00)
[2024-05-06] MEDS: TRANEXAMIC ACID 1,000 MG/10 ML VIAL IV ONE (08:03)
[2024-05-06] MEDS: CEFAZOLIN SODIUM 1 GM/VIAL ONE (08:17)
[2024-05-06] MEDS: NA CHLORIDE 0.9% 1,000 ML ONE (10:00)
[2024-05-06] MEDS ORDERED: dexAMETHasone 4 MG/ML VIAL ONE (10:03)
--- NOTE | 2024-05-06 10:09 | P.BOP ---
Preoperative diagnosis: right proximal femur fracture Postoperative diagnosis: same Primary procedure: right JAYDA kusum femur Estimated blood loss: 150 Anesthesia: General Transferred to: Recovery Room Condition: Good
[2024-05-06] MEDS: HYDROMORPHONE HCL 1 MG/ML INJ ONE (11:20)
--- NOTE | 2024-05-06 11:28 | OP ---
Date of Procedure: 05/06/2024 Surgeon: Ludin Ward MD Preoperative Diagnosis: Right displaced proximal femur fracture. Postoperative Diagnosis: Right displaced proximal femur fracture. Procedure: Right closed and open reduction of proximal femur fracture with intramedullary kusum fixati on using the Affixus nail system. Estimated Blood Loss: 150 mL. Complications: There were no complications. Indications For Operation: Ms. Duenas is non-ambulatory at this time, the patient who has had cerebral palsy, she was reportedly trying to stand to transfer, went over her right lower extremity, which flores s a previous knee injury and instability gave way and she fell injuring her right hip. She was seen and examined in the emergency department where she was ruled out for other injuries; however CT scan demonstrates a more or less vertical fracture in the basicervical/intertrochanteric region. Other co morbidities include a high BMI, a height of 4 feet 6 inches, the fracture pattern, osteoporosis, and knee instability. All of these were taken into account prior to and during the operation and require d some changes from normal technique. There were no complications. Description Of Procedure: The patient was taken to the operating room, placed in the supine position . General anesthesia was easily obtained by the Anesthesia staff. Following this, she was then plac ed on the fracture table and appropriately positioned using the fracture positioning system. Really could not pull much traction on her knee as it was quite unstable. Also, given the fracture pattern and her size, straight traction did not really elicit much reduction of the fracture; however, we did position it as well as possible given these constraints. Following this, her right lower extremity was then prepped and draped in usual sterile fashion for this procedure. The C-arm was brought in an d the position of the greater trochanter was marked out using a marking pen. A standard lateral inci elvira was taken down carefully through skin. There was quite a bit of adipose tissue; however, the fa scia was encountered and an incision was made here above the greater trochanter. A finger was placed to locate the greater trochanter and the starting awl was then used. The fracture pattern makes it difficult to establish the starting position as the usual position of the kusum is directly in the frac ture site and progresses distally; however, the starting point was established and a pin was placed w ithout difficulty down the shaft of the femur. After this, the smallest kusum that we have was brought up and measured against her thigh to estimate the relative position of the cephalomedullary screw wh en it was eventually placed. An incision was made carefully through skin, soft tissue, through the f ascia, which allowed for placement of a bone hook. Bone hook was gently placed at the most inferior aspect of the fracture and a combination of traction and manipulation of the lower extremity as well as the use of a bone hook demonstrates very improved reduction. After this, the re dye hand was then placed, the re dye hand was able to go down near the greater trochanter where it encountered signifi cant amount of resistance from the shaft, which is quite small. After this, the flexible reamers wer e then used to ream to a size 11 holding the reduction with the bone hook in previous positions. Thi s allowed for placement of the kusum, the kusum is in place, the collar of the kusum where it flares appear s to be impacting upon the fall on the proximal femur. It does not goes down quite as far as I would like. Attempts with a re dye hand to widen this are successful to get it down to where it appears t hat we can place a cephalomedullary screw in slightly more superior, but otherwise optimal position. Decision was made not to hammer on the kusum as this may cause split of the femur and the re dye hand also appeared to be perhaps rather than deepening simply widening the area encountered. Therefore, t he decision was made to place the guide pin. The guide pin was placed and appears to be center on th e lateral and slightly more superior than I would like on the AP. However, this was deemed acceptabl e. After this, reamer was then used and the cephalomedullary screw was placed. There was no room fo r any rotation screw. The distal interlock was placed and after this, the kusum was then locked using the locking mechanism of the kusum. The guide was then removed and the wounds were irrigated and close d using Vicryl sutures followed by nika. The patient was then placed in a sterile dressing, awakened, and taken to recovery room in good condition. No complicatio ns. /MODL Voice ID: [id number] Report ID: [id number]
--- NOTE | 2024-05-06 14:49 | P.PN ---
Subjective Date of Service: 05/06/24 Status post ORIF today. No fever. Physical Examination - Vital Signs Temperature: 97.8 F Blood Pressure: 130/80 Pulse: 96 Respirations: 12 Pulse Ox (%): 92 Assessment And Plan - Plan Physical examination General: Alert and oriented x3, NAD, morbidly obese Neck: No elevated JVD Heart: Heart sounds 1 and 2 normal, regular rhythm, normal rate, no pedal edema Lungs: Clear to auscultation bilaterally, adequate breath sounds bilaterally, no rhonchi or crackles. Abdomen: Soft, nondistended, nontender, normal bowel sounds. Skin: Normal skin turgor, no rash. Neuro: No focal motor deficit. Normal speech. Diagnosis Right intertrochanteric hip fracture Diabetes mellitus Hypertension Morbid obesity Cerebral palsy Restless leg syndrome Muscle cramps UTI Plan Right intertrochanteric fracture Fall Patient evaluated by orthopedic Dr. Ward and plan for ORIF tomorrow. Analgesics as needed. Check UA to rule out UTI. Diabetes mellitus type 2 Borderline diabetes. Diet controlled low carbohydrate diet Restless leg syndrome Cerebral palsy Continue home medications Essential hypertension Borderline low BP. Hold antihypertensives for now. 05/06 Status post ORIF monitor intramedullary nail. UA suggest the presence of UTI Continue IV Levaquin Follow urine culture DVT prophylaxis with Lovenox for now PT consult ADA diet. DVT prophylaxis: Lovenox Advanced directive: Full code
[2024-05-06] MEDS: CEFAZOLIN 1 GM in NA CHLORIDE 0.9% 50 ML IVPB SCH (16:38)
--- NOTE | 2024-05-06 20:46 | RAD REPORT ---
Exam: Hip in OR right 2 view Clinical history right hip surgery FINDINGS: 92 fluoroscopic spot images obtained. Fluoroscopy time 2.6 minutes. Compression screw and intramedullary kusum placed into the right femur affixing a fracture. Surgery performed by Dr. Ward
[2024-05-07] MEDS: MORPHINE 2 MG/ML SYR IV ONE (00:28)
--- NOTE | 2024-05-07 08:45 | P.PN ---
Subjective Date of Service: 05/07/24 Status post ORIF yesterday. No major issues compared to yesterday. No recorded fever. Physical Examination - Vital Signs Temperature: 98.2 F Blood Pressure: 121/70 Pulse: 102 Respirations: 17 Pulse Ox (%): 93 Assessment And Plan - Plan Physical examination General: Alert and oriented x3, NAD, morbidly obese Neck: No elevated JVD Heart: Heart sounds 1 and 2 normal, regular rhythm, normal rate, no pedal edema Lungs: Clear to auscultation bilaterally, adequate breath sounds bilaterally, no rhonchi or crackles. Abdomen: Soft, nondistended, nontender, normal bowel sounds. Skin: Normal skin turgor, no rash. Neuro: No focal motor deficit. Normal speech. Diagnosis Right intertrochanteric hip fracture Diabetes mellitus Hypertension Morbid obesity Cerebral palsy Restless leg syndrome Muscle cramps UTI Functional constipation Plan Right intertrochanteric fracture Fall Patient evaluated by orthopedic Dr. Ward and plan for ORIF tomorrow. Analgesics as needed. Check UA to rule out UTI. Diabetes mellitus type 2 Borderline diabetes. Diet controlled low carbohydrate diet Restless leg syndrome Cerebral palsy Continue home medications Essential hypertension Borderline low BP. Hold antihypertensives for now. 05/06 Status post ORIF with intramedullary nail. UA suggest the presence of UTI Continue IV Levaquin Follow urine culture DVT prophylaxis with Lovenox for now PT consult ADA diet. 05/07 Status post ORIF Analgesics as needed Continue antibiotics Urine culture showed no growth. Patient initially medicated with cefazolin, transition to oral Levaquin to complete 5 days of treatment. Lovenox for DVT prophylaxis for now PT evaluation. Treat constipation with milk of magnesia and Dulcolax suppository. Social service consult for discharge planning DVT prophylaxis: Lovenox Advanced directive: Full code
[2024-05-07] MEDS: ENOXAPARIN 40 MG/0.4 ML SQ SCH (09:31)
[2024-05-07] MEDS: MORPHINE 4 MG/ML SYR IV ONE (20:38)
[2024-05-07] MEDS: MAGNESIUM HYDROXIDE 8% 30 ML PO ONE (20:44)
[2024-05-07] MEDS: BISACODYL 10 MG RECTAL SUPP PR ONE (20:58)
[2024-05-08] MEDS: MORPHINE 4 MG/ML SYR IV ONE (00:46)
[2024-05-08 05:31] LABS: Absolute Basophils 0.1 K/uL (0-0.5); Absolute Eosinophils 0.3 K/uL (0-0.5); Absolute Lymphocytes (CBC) 3.8 K/uL (0.7-4.9); Absolute Monocytes 0.6 K/uL (0.1-1.3); Absolute Neutrophil 4.1 K/uL (1.8-8.0); Basophils % 0.7 % (0-1.3); Eosinophils % 3.3 % (0-4.4); Hematocrit 32.5 % (36.0-45.0); Hemoglobin 10.9 g/dL (12.0-15.0); Lymphocytes % 43.1 % (15.3-44.8); MCH 30.9 pg (27.0-35.0); MCHC 33.6 g/dL (32.0-36.0); MPV 8.3 fL (7.6-11.3); Monocytes % 6.3 % (3.3-12.3); Neutrophils % 46.6 % (41.7-73.7); Nucleated Red Blood Cells % 0.1 % (0-0); Platelets 234 thou/uL (152-406); RBC Red Blood Cell Count 3.53 M/uL (3.86-4.86); Red Cell Distribution Width 13.5 % (12.1-15.2)
[2024-05-08] MEDS: PNEUMOCOCCAL VACCINE 0.5 ML IMVAC ONE (08:00)
[2024-05-08] MEDS: ONDANSETRON 4 MG/2 ML VIAL IV PRN (09:40)
--- NOTE | 2024-05-08 10:02 | P.PN ---
Date of Service: 05/08/24 Subjective: Multiple BM since last night after taking laxatives reports some nausea this morning after breakfast working with PT afebrile hip pain ok when not moving ROS: 10 point ROS as noted above, otherwise negative Physical Exam: GEN: Alert, oriented, NAD CV: Regular rate and rhythm, no edema Pulm: Nonlabored respirations on room air, clear bilaterally ABD: soft, nontender, nondistended MSK: right hip tenderness, dressing with small amount of dried blood, no appreciable hematoma Neuro: Normal speech, normal affect alegria placed 05/05 Problem List: Right intertrochanteric hip fracture, s/p ORIF (05/06) Hypertension Restless leg syndrome Cerebral palsy Anxiety/Depression NIDDM2 Functional constipation, resolved Right intertrochanteric hip fracture, s/p ORIF (05/06) on admission, presented with right hip and leg pain after falling from her bed to her wheelchair. no LOC. Dr. Ward, ortho is following s/p ORIF (05/06) TDWB of RLE per ortho Keep legs elevated. Pressure offloading measures. UA concerning for possible UTI, although urine cx from 05/05 without growth. s/p ancef (05/06-05/07) Pain control PT eval at baseline [facility] ./ assists with transfer h/o cerebral palsy and R knee ligament injury - typically has to wear a brace to help with transferring, however brace overlying incision / nika and painful Hypertension Restless leg syndrome Cerebral palsy Anxiety/Depression confirm home meds, restart as appropriate NIDDM2 diet controlled Functional constipation, resolved s/p dulcolax suppository, milk of magnesia 05/07 Patient reports multiple BM with relief since last night VTE: Lovenox Code: Full Dispo: SNF, pending choice/approval Time Spent Managing Pts Care (In Minutes): 55
[2024-05-08] MEDS ORDERED: MORPHINE 2 MG/ML SYR IV PRN (20:00)
[2024-05-08] MEDS: MORPHINE 4 MG/ML SYR IV PRN (21:01)
[2024-05-09 05:10] LABS: Hematocrit 32.1 % (36.0-45.0); Hemoglobin 10.9 g/dL (12.0-15.0); MCH 30.8 pg (27.0-35.0); MCV 90.6 fL (80-100); MPV 8.3 fL (7.6-11.3); Platelets 206 thou/uL (152-406); RBC Red Blood Cell Count 3.54 M/uL (3.86-4.86); Red Cell Distribution Width 12.7 % (12.1-15.2)
[2024-05-09 05:25] LABS: Anion Gap 9.1 mEq/L (5.0-15.0); Magnesium 2.1 mg/dL (1.6-2.4); Potassium 4.1 mEq/L (3.5-5.1)
[2024-05-09] MEDS: CYCLOBENZAPRINE 10 MG TAB PO SCH (08:04)
[2024-05-09] MEDS: GABAPENTIN 300 MG CAP PO SCH (08:05)
[2024-05-09 08:36] VITALS: TEMP 98
[2024-05-09 08:50] VITALS: O2SAT 93
[2024-05-09] MEDS: BENZONATATE 100 MG CAP PO PRN (10:15)
[2024-05-09 13:47] VITALS: BP 123/67
[2024-05-09] MEDS ORDERED: ATORVASTATIN 10 MG TAB PO SCH (21:00)
[2024-05-09] MEDS ORDERED: AMITRIPTYLINE 10 MG TAB PO SCH (21:00)
--- NOTE | 2024-05-10 12:16 | P.DS ---
Admission Date: 05/04/24 Discharge Date: 05/09/24 Disposition: TRANSFER TO SNF - REHAB Discharge Condition: FAIR Consultations: Ortho - Dr. Ward Brief History of Present Illness: 64yo F, PMH: cerebral palsy, new onset diet-controlled diabetes, hypertension Patient presented to the ED after a fall earlier today. I spoke with her mother over the phone. She states she was transferring from her bed to her wheelchair. Her right leg buckled underneath her and she twisted on the way down she denies loss of consciousness or hitting her head. In addition she denies fever, dysuria, chills. She states as a child she has had numerous surgeries and she has had no reaction to anesthesia. She does take Tylenol 3 pills once a month for pain control. Hospital Course: Problem List: Right intertrochanteric hip fracture, s/p ORIF (05/06) Hypertension Restless leg syndrome Cerebral palsy Anxiety/Depression NIDDM2 Functional constipation, resolved Physician discharge instructions: Patient presented with right hip and leg pain after falling from her bed to her wheelchair, secondary to right intertrochanteric hip fracture. She was evaluated by Dr. Ward and underwent ORIF on 05/06. Patient did well post-operatively. She worked with physical therapy throughout hospitalization, who felt patient would benefit from a shelter facility to improve strength/endurance to return to a prior level of function before returning home. Patient was feeling better, pain well managed with oral pain medication, and was deemed stable for discharge. Dr. Ward recommended touchdown weight-bearing to right lower extremity until otherwise instructed at follow up appointment. Follow up with ortho within 2 weeks for further management. There was some concern for possible UTI on admission given abnormal urinalysis, however urine culture was without growth. Antibiotics were discontinued after 2 days, and she continued to do well. Rhodes was removed on 05/09. Initially placed due to retention pre-operatively. Suspect secondary to fracture/pain. Continue to monitor urine output. Medications: while hospitalized was taking norco 5/325 as needed for pain post-operatively lovenox 40mg dialy for DVT prophylaxis following hip surgery continued preivous home medications as prescribed Follow up: PCP 3-[address] Ward in 2 weeks Please call to schedule / confirm appointments Physical Exam: GEN: Alert, oriented, NAD CV: Regular rate and rhythm, no edema Pulm: Nonlabored respirations on room air, clear bilaterally ABD: soft, nontender, nondistended MSK: R hip with dressing in place Neuro: Normal speech, normal affect Vital Signs/Physical Exam: Temp Pulse Resp BP Pulse Ox 98.0 F 77 78 H 123/67 94 05/09/24 12:00 05/09/24 12:00 05/09/24 13:46 05/09/24 13:46 05/09/24 13:41 Laboratory Data at Discharge: WBC 7.70 thou/uL (4.3-10.9) 05/09/24 04:53 Hgb 10.9 g/dL (12.0-15.0) L 05/09/24 04:53 Hct 32.1 % (36.0-45.0) L 05/09/24 04:53 Plt Count 206 thou/uL (152-406) 05/09/24 04:53 PT 11.4 SECONDS (10.0-13.0) 05/05/24 05:48 INR 1.00 05/05/24 05:48 Sodium 137 mEq/L (136-145) 05/09/24 04:53 Potassium 4.1 mEq/L (3.5-5.1) 05/09/24 04:53 BUN 12 mg/dL (7-18) 05/09/24 04:53 Creatinine 0.71 mg/dL (0.55-1.02) 05/09/24 04:53 Glucose 136 mg/dL (74-106) H 05/09/24 04:53 Magnesium 2.1 mg/dL (1.6-2.4) 05/09/24 04:53 Total Bilirubin 0.3 mg/dL (0.2-1.0) 05/05/24 05:48 AST 22 U/L (15-37) 05/05/24 05:48 ALT 36 U/L (13-56) 05/05/24 05:48 Alkaline Phosphatase 65 U/L (45-117) 05/05/24 05:48 Home Medications: Buspirone HCl 10 mg PO DAILY 08/02/12 Meloxicam [Mobic*] 15 tab PO DAILY 08/02/12 Metoprolol Tartrate [Lopressor*] 50 mg PO BID 08/02/12 Quetiapine [Seroquel*] 600 mg PO BEDTIME MDD 600 08/02/12 Ropinirole HCl [Requip*] 5 mg PO BREAKFAST 08/02/12 Valacyclovir HCl [Valacyclovir] 500 mg PO DAILY PRN MDD 1000 08/02/12 Amitriptyline [Elavil*] 10 mg PO BEDTIME 05/05/24 Calcium Carbonate [Calcium] 600 mg PO BID 05/05/24 Codeine/APAP [Tylenol #3*] 500 mg PO PRN PRN MDD 500 05/05/24 Cyclobenzaprine [Flexeril*] 10 mg PO BID 05/05/24 Docusate Sodium [Colace] 100 mg PO BID 05/05/24 Ezetimibe 10 mg PO DAILY 05/05/24 Ferrous Sulfate [Iron] 325 mg PO DAILY 05/05/24 Gabapentin 300 mg PO BID 05/05/24 Lactulose 20 ml PO BID 05/05/24 Lansoprazole 30 mg PO DAILY WITH BREAKFAST 05/05/24 Magnesium Chloride [Slow-Mag*] 05/05/24 Mirabegron [Myrbetriq] 25 mg PO BEDTIME 05/05/24 Nystatin/Triamcinolone Acet [Nystatin-Triamcinolone Cream] 15 gm TP PRN 05/05/24 Ramelteon 8 mg PO BEDTIME 05/05/24 Ropinirole HCl 8 mg PO BEDTIME 05/05/24 Simvastatin 20 mg PO BEDTIME 05/05/24 Travoprost (Benzalkonium) [Travatan 0.004% Eye Drop] 1 drop EACH EYE BEDTIME 05/05/24 Vitamin B Complex [B Complex] 1,000 each PO DAILY 05/05/24 ZOLMitriptan [Zolmitriptan] 5 mg PO PRN PRN 05/05/24 Enoxaparin Sodium [Lovenox 40 MG INJ*] 40 mg SQ DAILY 14 Days #14 syr 05/09/24 New Medications: Enoxaparin Sodium [Lovenox 40 MG INJ*] 40 mg SQ DAILY 14 Days #14 syr Physician Discharge Instructions: Physician discharge instructions: Patient presented with right hip and leg pain after falling from her bed to her wheelchair, secondary to right intertrochanteric hip fracture. She was evaluated by Dr. Ward and underwent ORIF on 05/06. Patient did well post-operatively. She worked with physical therapy throughout hospitalization, who felt patient would benefit from a shelter facility to improve strength/endurance to return to a prior level of function before returning home. Patient was feeling better, pain well managed with oral pain medication, and was deemed stable for discharge. Dr. Ward recommended touchdown weight-bearing to right lower extremity until otherwise instructed at follow up appointment. Follow up with ortho within 2 weeks for further management. There was some concern for possible UTI on admission given abnormal urinalysis, however urine culture was without growth. Antibiotics were discontinued after 2 days, and she continued to do well. Rhodes was removed on 05/09. Initially placed due to retention pre-operatively. Suspect secondary to fracture/pain. Continue to monitor urine output. Medications: while hospitalized was taking norco 5/325 as needed for pain post-operatively lovenox 40mg dialy for DVT prophylaxis following hip surgery continued preivous home medications as prescribed Follow up: PCP 3-[address] Ward in 2 weeks Please call to schedule / confirm appointments Followup: Ludin Ward MD [ACTIVE - CAN ADMIT] - 1-2 Weeks Sreekanth Dixon DO [Primary Care Provider] - Time spent managing pt's care (in minutes): 45
== END 2024-05-09 14:30 | DRG 481 ==
LOC: ER 19:01 → ERHOLD 23:42 → 2ND 05-05 00:46
PROVIDERS: ADMIT Family Medicine; ATTEND Hospitalist
PROC: 0T9B70Z Drainage of Bladder with Drainage Device, Via Natural or Artificial Opening (ICD-10-PCS; 2024-05-05)
PROC: 0QS606Z Reposition Right Upper Femur with Intramedullary Internal Fixation Device, Open Approach (ICD-10-PCS; principal; 2024-05-06 08:00)
DX: S72.141A Displaced intertrochanteric fracture of right femur, initial encounter for closed fracture (principal); Z68.42 Body mass index [BMI] 45.0-49.9, adult; E66.01 Morbid (severe) obesity due to excess calories; I10 Essential (primary) hypertension; F41.9 Anxiety disorder, unspecified; K59.04 Chronic idiopathic constipation; F32.A Depression, unspecified; E11.9 Type 2 diabetes mellitus without complications; G25.81 Restless legs syndrome; G80.9 Cerebral palsy, unspecified; E78.00 Pure hypercholesterolemia, unspecified; Z88.1 Allergy status to other antibiotic agents; Z88.0 Allergy status to penicillin; Z88.5 Allergy status to narcotic agent; Z88.8 Allergy status to other drugs, medicaments and biological substances; Z90.49 Acquired absence of other specified parts of digestive tract; Z90.710 Acquired absence of both cervix and uterus; W06.XXXA Fall from bed, initial encounter; Y92.003 Bedroom of unspecified non-institutional (private) residence as the place of occurrence of the external cause; Y93.89 Activity, other specified; Y99.9 Unspecified external cause status
CPT/HCPCS: 36415; 73700; 74176; 76377; 80048; 80053; 81001; 82947; 83735; 85025; 85027; 85610; 87086; 87088; 94760; 96374; 96375; 97110; 97161; 97530; 99284; J0690; J1100; J1171; J1644; J1650; J2003; J2250; J2270; J2371; J2405; J2704; J3010; J7030